=== PATIENT | female | born 1990 | race Caucasian/White ===

== ENCOUNTER 2017-05-19 17:26 | Emergency (ER) | payer SELFPAY, OTHER | END 2017-05-19 19:05 | disposition home or self-care (01) | LOC: M ED 17:26 | DX: J02.8 Acute pharyngitis due to other specified organisms (principal); F17.210 Nicotine dependence, cigarettes, uncomplicated; Z88.8 Allergy status to other drugs, medicaments and biological substances | CPT/HCPCS: 87880 ==

== ENCOUNTER 2020-10-15 10:28 | Inpatient (IN) | payer MEDICAID, OTHER, SELFPAY ==
[~2020-10-15] VITALS: Ht 149.9 cm; Wt 44.5 kg
[~2020-10-15 10:28] MED LIST: BENZ200C70 PO; FLON1SPR
[2020-10-15 11:14] LABS: HEMATOCRIT 49.4 % (36.0-47.0); HEMOGLOBIN 16.3 g/dl (12.0-15.5); MEAN CORPUSCULAR HEMOGLOBIN 29.6 pg (27.0-33.0); MEAN CORPUSCULAR VOLUME 89.8 fl (80.0-96.0); PLATELET COUNT, AUTOMATED 362 10^3/uL (150-450); WHITE BLOOD COUNT 12.2 10^3/uL (4.0-10.0)
[2020-10-15 11:34] LABS: HCG, SERUM QUALITATIVE NEGATIVE (NEGATIVE)
[2020-10-15 11:44] LABS: ACETAMINOPHEN LEVEL < 2.0 UG/ML (10.0-30.0); ALBUMIN 4.3 GM/DL (3.2-5.2); ALT/SGPT 19 U/L (12-78); BILIRUBIN,DIRECT 0.1 MG/DL (0.0-0.2); BILIRUBIN,TOTAL 0.7 MG/DL (0.2-1.0); BLOOD UREA NITROGEN 11 MG/DL (7-18); CARBON DIOXIDE LEVEL 32 MEQ/L (21-32); CHLORIDE LEVEL 104 MEQ/L (98-107); CREATININE FOR GFR 1.12 MG/DL (0.55-1.30); ETHYL ALCOHOL (ETHANOL) < 0.003 % (0.000-0.010); GLOMERULAR FILTRATION RATE > 60.0 (>60); GLUCOSE, FASTING 96 MG/DL (70-100); SALICYLATE LEVEL < 1.7 MG/DL (5.0-30.0); SODIUM LEVEL 139 MEQ/L (136-145); TOTAL PROTEIN 8.2 GM/DL (6.4-8.2)
--- NOTE | 2020-10-15 11:51 | REPVR ---
PROCEDURE INFORMATION: Exam: CT Head Without Contrast Exam date and time: 10/15/2020 11:42 AM Age: 30 years old Clinical indication: Altered mental status/memory loss TECHNIQUE: Imaging protocol: Computed tomography of the head without contrast. Radiation optimization: All CT scans at this facility use at least one of these dose optimization techniques: automated exposure control; mA and/or kV adjustment per patient size (includes targeted exams where dose is matched to clinical indication); or iterative reconstruction. COMPARISON: No relevant prior studies available. FINDINGS: Brain: Normal. No hemorrhage. Unremarkable white matter. No mass effect. Cerebral ventricles: No ventriculomegaly. Paranasal sinuses: There is mild ethmoid and maxillary sinus mucosal thickening. Mastoid air cells: Visualized mastoid air cells are well aerated. Bones/joints: Unremarkable. No acute fracture. Soft tissues: Unremarkable. IMPRESSION: No acute hemorrhage or edema. Electronically signed by: Mirlande Brown On 10/15/2020 11:50:52 AM
[2020-10-15 12:41] LABS: AMPHETAMINES LEVEL URINE POSITIVE (NEGATIVE); BARBITURATES URINE NEGATIVE (NEGATIVE); BENZODIAZEPINES URINE NEGATIVE (NEGATIVE); CANNABINOIDS URINE NEGATIVE (NEGATIVE); COCAINE METABOLITE URINE POSITIVE (NEGATIVE); METHADONE URINE NEGATIVE (NEGATIVE); OPIATES URINE NEGATIVE (NEGATIVE); PHENCYCLIDINE URINE NEGATIVE (NEGATIVE)
[2020-10-15 15:37] LABS: RSV AMPLIFICATION NEGATIVE (NEGATIVE)
[2020-10-15] MEDS ORDERED: MOM 30ML SUSPENSION UDC PO PRN (20:00)
[2020-10-15] MEDS ORDERED: MAALOX 30 ML SUSP *UDC PO PRN (20:00)
[2020-10-15] MEDS ORDERED: OLANZapine ORAL DISINTEGRATING TAB 5MG PO PRN (20:00)
[2020-10-15 20:48] VITALS: BP 123/67
--- NOTE | 2020-10-15 20:52 | ECGEPIP ---
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
[2020-10-15] MEDS ORDERED: traZODone 50 MG TAB PO PRN (22:20)
[2020-10-15] MEDS ORDERED: NICOTINE 21MG/24HR 1 EA TRANSDERMAL TD PRN (23:30)
[2020-10-16] MEDS ORDERED: NICOTINE 21MG/24HR 1 EA TRANSDERMAL TD SCH (09:00)
--- NOTE | 2020-10-16 10:11 | MHHPEPDOC ---
General Date Of Admission: Oct 15, 2020 Legal Status: 9.39 Chief Complaint I was self-medicating with cocaine and amphetamine and I do not plan to stop. ". History of Present Illness HISTORY OF THE PRESENT ILLNESS: Patient is a 30 -year-old , female, who [has a long history of substance abuse primarily amphetamine and cocaine for the past several years. Patient was brought to emergency room by police after her parents called to report concern for her safety. Her parents felt that she was actively using amphetamine and was contemplating suicide by using a gun although the patient does not have a gun and denies making any suicidal threats. 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 She has been attending outpatient addictions of service but never stopped using and does not plan to stop using and does not want to go to any drug inpatient rehabilitation treatment. She denies any hallucination paranoia denies any serious depression denies any suicidal plan or intent and denies any previous suicidal attempt. She has been homeless for the past 4 years has been staying with a friend or living in a car but has no plan to settle down and does not have any plan to stop using. She is moderately elevated and inappropriately smiling at times and having hard time focusing but is not expressing any delusional ideas and denies any hallucination and any suicidal thoughts at all]. Psychiatric Review of Systems Depression (2 or more weeks): feelings of excess/guilt, difficulty concentrating, other (Patient admits to grieving the of her boyfriend) Tamy (4 or more days of): denies Psychosis: denies PTSD: denies Anxiety: situational anxiety Past Psychiatric History Previous Psychiatric Diagnosis: . Denies any previous psychiatric treatment Previous Psychiatric Admissions: . No prior inpatient treatment Suicide Attempts: . Denies any history of suicidal attempt Psychiatric Follow-up: . Attending substance abuse treatment program Psychiatric medications: . Not been on any psychiatric medicine Past Medical History Medical Problems Denies any major medical history Head Injury: No Seizures: No Hospitalizations: No Surgeries: No Family Medical/Psychiatric HX Medical Problems Noncontributory Psychiatric Disorders: No Addiction: No Suicide Attemps/Completions: No (Patient denies any family psychiatric history) Addiction History cocaine, amphetamines, methamphetamines Social History Childhood: . Reports no problems with her childhood Abuse/Trauma:[Denies any history of trauma]. Current Living Situation: Been homeless for 4 years. Education: . High school Employment: . Past work at the [employer] Social Support: . Friend Legal: . Has family court involvement has 2 children ages 6 and 4 living with the parents with a temporary custody Marital: . Never father of her 6-year-old of car accident in 2017 Mental Status Examination General Appearance: appears stated age Build: thin Demeanor: average Eye Contact: average Activity: average, anxious Behavior: cooperative, restless Speech: clear, pressured, normal volume Mood: anxious, other (Slightly elevated and occasional inappropriate smiles) Mood Reports that she is still grieving over the of her child's father Thought Process: logical/linear Thought Content (Delusions): none reported, denies SI, HI, AVH Thought Content (Other): none reported Thought Content (Aggressive): none reported Perception (Hallucinations): none reported Perception (Other): none reported Cognition (Impairment of): none reported Cognition(Intelligence Est.): average Oriented: Awake, Alert, Oriented times three Insight: fair Judgment: Poor Diagnoses 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 She admits to active cocaine and amphetamine use and appears to be slightly elevated under the influence of amphetamine but no gross psychotic symptoms and does not appear to be acutely suicidal. She is denying any need for inpatient rehabilitation treatment but is interested in possible antidepressant treatment. She needs further observation and lethality assessment. Initial Treatment Plan 1. Patient was admitted on a 9.39 status. 2. Complete history was obtained. 3. With patients permission, family will be contacted and database will be expanded. 4. Patients medication regimen will be reviewed and changed accordingly. 5. Patient will be provided with protected environment. 6. Patient will be treated with individual, group, and milieu therapies. 7. Patient will receive supportive psych-education. 8. Discharge planning will commence immediately. 9. Outpatient follow-up treatment will be strongly recommended. 10. The initial treatment plan will focus initially on: * Depression. * Risk for suicide. ESTIMATED LENGTH OF STAY: 3-5 DAYS. TIME SPENT COUNSELING AND COORDINATING INITIAL CARE: 45 minutes. Tobacco Cessation Screen If Patient is a Smoker Is a smoker Tobacco Cessation Tx Ordered?: Yes N/A-No Antipsychotics Vital Signs Vital Signs Date Time Temp Pulse Resp B/P (MAP) Pulse Ox O2 Delivery O2 Flow Rate FiO2 10/15/20 20:48 97.8 82 18 123/67 (85) 98 Room Air Laboratory Data 24H Labs Laboratory Tests 2 10/15/20 10:53: Nucleated Red Blood Cells % (auto) 0.0, Anion Gap 3L, Glomerular Filtration Rate > 60.0, Calcium Level 9.0, Total Bilirubin 0.7, Direct Bilirubin 0.1, Aspartate Amino Transf (AST/SGOT) 19, Alanine Aminotransferase (ALT/SGPT) 19, Alkaline Phosphatase 85, Total Protein 8.2, Albumin 4.3, Albumin/Globulin Ratio 1.1L, Thyroid Stimulating Hormone (TSH) 1.390, Human Chorionic Gonadotropin, Qual NEGATIVE, Salicylates Level < 1.7L, Acetaminophen Level < 2.0L, Ethyl Alcohol Level < 0.003 10/15/20 11:48: Urine Opiates Screen NEGATIVE, Urine Methadone Screen NEGATIVE, Urine Barbiturates Screen NEGATIVE, Urine Phencyclidine Screen NEGATIVE, Urine Amphetamines Screen POSITIVEH, Urine Benzodiazepines Screen NEGATIVE, Urine Cocaine Metabolite Screen POSITIVEH, Urine Cannabinoids Screen NEGATIVE 10/15/20 14:52: Coronavirus (COVID-19)(PCR) NEGATIVE, Influenza Type A (RT-PCR) NEGATIVE, Influenza Type B (RT-PCR) NEGATIVE, Respiratory Syncytial Virus (PCR) NEGATIVE CBC/BMP Laboratory Tests 10/15/20 10:53 Medications No Active Prescriptions or Reported Meds Allergies Coded Allergies: sodium hypochlorite solution (Verified Allergy, Unknown, RASH, 10/15/20) JAMES COLEMAN M.D. Oct 16, 2020 10:11
--- NOTE | 2020-10-16 15:05 | HPEPDOC ---
[facility] Medical History & Physical Date of Admission Oct 15, 2020 Date of Service: Oct 16, 2020 History and Physical Chief complaint: Who presented to the emergency room with suicidal ideation History of present illness: Patient is a 30-year-old female who presented to the emergency room with suicidal ideation. Patient was admitted to inpatient mental health unit under the care of psychiatry. Hospitalist service was consulted for medical screening evaluation. Patient was seen and examined in the exam room with a female cloth mercerizer back tender. Currently patient denies any headache, nausea, vomiting, chest pain, shortness breath, palpitations, abdominal pain, constipation, diarrhea, or urinary discomfort. Denies any changes in her weight or appetite. Patient reports that she may have been bitten by a mosquito or her thigh. Past Medical History: Chronic left shoulder pain since 2012 has follow-up with pain clinic for steroid injections depression 2014 has stopped taking medications Past Surgical History: Tonsillectomy and adenoidectomy Right inguinal hernia repair Allergies: See below Medications: See below Family History: - Patient denies any prior history of her mother or father Social History: - Patient reports that she is a smoker. Reports the use of marijuana and cocaine. Reports alcohol use socially - Denies recent travel or sick contacts - Patient reports that she is currently living at a friends place - Occupation; unemployed Review of Systems: 10 point review of systems complete, all negative otherwise stated in HPI Physical exam: - Vitals: BP [123/67], HR [82], RR [18], Sat [98%RA], Temp [97.8F] - General: Sitting up in chiar, No acute distress, Speaking in full sentences, AAOx3 - HEENT: NC, AT, PERRLA - CVS: RRR, +S1S2 - Lungs: Fair air entry bilaterally, No appreciable wheezing / rales / rhonchi - Abdomen: Soft, Non-distended, Non-tender - Extremities: No lower extremity edema, No calf tenderness - Neuro: No focal motor or sensory deficit - Skin: Multiple areas of decreased pigmentation around legs, face, arms, thighs (reported its been happening for years) Labs: See below Imaging: CT Head 10/15: No acute hemorrhage or edema. EKG: See below Assessment and Plan: Suicidal ideation - History of depression 2014 has stopped taking medications - Patient has been admitted to inpatient mental health unit under the care of psychiatry - Currently being managed by psychiatry Dental caries - Patient will need to follow with a dentist/oral surgeon as an outpatient Multiple skin lesions - Patient reports this has been chronic home for her for the last several years - Will have outpatient follow-up with dermatology Chronic left shoulder pain since 2012 - Follows with pain clinic for steroid injections DVT prophylaxis - Will c/w early ambulation Female cloth mercerizer back tender was present throughout the duration of this history and physical examination Thank you for this consultation. Hospitalist service will now sign off. Please reconsult as needed Vital Signs Vital Signs Date Time Temp Pulse Resp B/P (MAP) Pulse Ox O2 Delivery O2 Flow Rate FiO2 10/15/20 20:48 97.8 82 18 123/67 (85) 98 Room Air Home Medications No Active Prescriptions or Reported Meds Allergies Coded Allergies: sodium hypochlorite solution (Verified Allergy, Unknown, RASH, 10/15/20) MARNIE ORO MD Oct 16, 2020 15:05
[2020-10-16 16:10] LABS: BASO # 0.1 10^3/uL (0.0-0.2); EOS # 0.1 10^3/uL (0.0-0.5); EOS % 1.4 % (0.0-3.0); HEMATOCRIT 47.3 % (36.0-47.0); HEMOGLOBIN 15.4 g/dl (12.0-15.5); LYMPH # 3.2 10^3/uL (1.5-5.0); MEAN CORPUSCULAR HEMOGLOBIN 29.5 pg (27.0-33.0); MEAN CORPUSCULAR HGB CONC 32.6 g/dl (32.0-36.5); MEAN CORPUSCULAR VOLUME 90.6 fl (80.0-96.0); MONO # 0.7 10^3/uL (0.0-0.8); MONO % 6.8 % (2.0-8.0); NEUTROPHILS # 6.1 10^3/uL (1.5-8.5); NEUTROPHILS % 59.3 % (36.0-66.0); PLATELET COUNT, AUTOMATED 330 10^3/uL (150-450); RED BLOOD COUNT 5.22 10^6/uL (4.00-5.40); WHITE BLOOD COUNT 10.3 10^3/uL (4.0-10.0)
[2020-10-16 18:40] VITALS: BP 120/77
[2020-10-16] MEDS: QUEtiapine FUMARATE 100 MG TAB PO SCH (20:51)
[2020-10-16] MEDS: diphenhydrAMINE CREAM 30GM TOP PRN (20:52)
[2020-10-17 05:52] VITALS: BP 124/68
--- NOTE | 2020-10-17 10:23 | MHIPNPDOC ---
[facility] Progress Note Progress Note DATE OF SERVICE: 10/17/20 The patient took her Seroquel last night and slept through the night and reports feeling a little better. She is in good control,is eating and denies any problem but appears very superficial and still somewhat elevated. She easily admits that she has been using cocaine and amphetamine and has no intention to stop using because those are her medications for her mental health. She is again smiling somewhat inappropriately and reports feeling good and denies any serious depression or suicidal thoughts. She is hoping to be able to go to her boyfriend father's house where her baby is staying. She is admitting to making suicidal statement but denies any clear plan or intent and does not want to go to any inpatient drug treatment. She is showing absolutely no insight and has no safe plan at this time so we will continue with her Seroquel and continue with the supportive therapy and education and develop a safe discharge plan. . HISTORY:. VITAL SIGNS: See below. NEW TEST RESULTS:. CURRENT MEDICATIONS: See below. MENTAL STATUS EXAMINATION: Patient is a 30-year old female, who is in good control. Speech: Is rational relevant. Language skills are fair. Thought processes including: Relevant response but not spontaneous. Thought content: Denies any hallucination or paranoia. Abstract reasoning, and computation: Poor. Description of associations: Coherent. Description of abnormal or psychotic thoughts: Denies any psychotic symptoms and denies any suicidal plan. Judgment: Poor. Insight: Very poor. Orientation: Appears oriented. Recent and remote memory: No gross impairment. Attention span and concentration: Poor. Language:. Fund of knowledge:. Mood: Claims she is feeling good. Affect: Animated but somewhat inappropriate. DIAGNOSES: 1.. Depressive disorder NOS 2.. Cocaine and amphetamine use disorder 3.. ASSESSMENT: Maintaining control and denies any active suicidal thoughts MANAGEMENT PLAN: Continue with the Seroquel at bedtime and supportive therapy and education. TIME SPENT: 20 minutes. Vital Signs Vital Signs Date Time Temp Pulse Resp B/P (MAP) Pulse Ox O2 Delivery O2 Flow Rate FiO2 10/17/20 05:52 97.2 98 16 124/68 (86) 97 Room Air Laboratory Data 24H Labs Laboratory Tests 2 10/16/20 15:51: Immature Granulocyte % (Auto) 0.5, Neutrophils (%) (Auto) 59.3, Lymphocytes (%) (Auto) 31.0, Monocytes (%) (Auto) 6.8, Eosinophils (%) (Auto) 1.4, Basophils (%) (Auto) 1.0, Neutrophils # (Auto) 6.1, Lymphocytes # (Auto) 3.2, Monocytes # (Auto) 0.7, Eosinophils # (Auto) 0.1, Basophils # (Auto) 0.1, Nucleated Red Blood Cells % (auto) 0.0, Procalcitonin <0.05 CBC/BMP Laboratory Tests 10/16/20 15:51 Current Medications Current Medications Medications (Trade) Dose Ordered Sig/Payal Route PRN Reason Start Time Stop Time Status Last Admin Dose Admin Acetaminophen (Tylenol Tab) 650 mg Q6HP PRN PO HEADACHE or MILD DISCOMFORT 10/15/20 20:00 Al Hydrox/Mg Hydrox/Simethicone (Mylanta) 30 ml Q4HP PRN PO HEARTBURN/INDIGESTION 10/15/20 20:00 Diphenhydramine HCl (Benadryl Cream) apply to affected areas... Q6HP PRN TOP ITCHING 10/16/20 15:15 10/16/20 20:52 Home Med (Med Rec Complete!) ASDIRECTED XX 10/15/20 14:10 10/15/20 14:13 DC Magnesium Hydroxide (Milk Of Magnesia) 30 ml DAILYPRN PRN PO CONSTIPATION 10/15/20 20:00 Nicotine (Nicoderm Cq 21mg) 1 patch DAILY TD 10/16/20 09:00 10/15/20 23:31 DC Nicotine (Nicoderm Cq 21mg) 1 patch DAILY PRN TD NICOTINE WITHDRAWAL 10/15/20 23:30 10/15/20 23:37 Olanzapine (ZyPREXA ZYDIS) 5 mg Q4HP PRN PO AGITATION 10/15/20 20:00 Quetiapine Fumarate (SEROquel) 100 mg QHS PO 10/16/20 21:00 10/16/20 20:51 Trazodone HCl (Desyrel) 50 mg QHSP PRN PO INSOMNIA 10/15/20 22:20 Allergies Coded Allergies: sodium hypochlorite solution (Verified Allergy, Unknown, RASH, 10/15/20) JAMES COLEMAN M.D. Oct 17, 2020 10:23
[2020-10-17 17:19] VITALS: BP 118/79
[2020-10-17] MEDS: QUEtiapine FUMARATE 100 MG TAB PO SCH (22:47)
[2020-10-17] MEDS: diphenhydrAMINE CREAM 30GM TOP PRN (22:49)
[2020-10-17] MEDS: ACETAMINOPHEN TAB 650MG DOSE (2X325MG) PO PRN (22:50)
[2020-10-18 06:57] VITALS: BP 92/64
[2020-10-18] MEDS: ACETAMINOPHEN TAB 650MG DOSE (2X325MG) PO PRN (12:50)
[2020-10-18 16:06] VITALS: BP 109/67
[2020-10-18] MEDS ORDERED: IBUPROFEN 600MG TAB PO PRN (17:10)
[2020-10-19] MEDS: ACETAMINOPHEN TAB 650MG DOSE (2X325MG) PO PRN (00:19)
[2020-10-19] MEDS: BENZOCAINE 10% 9GM TUBE (ANBESOL) TOP PRN ×2 (00:20→20:56)
[2020-10-19 05:42] VITALS: BP 139/72
[2020-10-19] MEDS: diphenhydrAMINE CREAM 30GM TOP PRN (20:56)
--- NOTE | 2020-10-19 22:09 | MHIPN ---
[facility] PROGRESS NOTE DATE: 10/18/2020 The patient is seen via telepsychiatry due to the current Coronavirus crisis. Patient states, "I am sleeping," and her eyes were closed throughout the whole time she was talking to me. She says she slept good also, but she thinks that it is the medication that is making her feel so groggy and it appears to be the Seroquel. She denies being depressed or being suicidal or homicidal. MENTAL STATUS EXAMINATION: She is alert and oriented times three, as I said there was no eye contact, she kept them closed. There was no formal thought disorder noted. She said her mood is good. Affect is constricted but appropriate to mood. She is not psychotic, suicidal, or homicidal. Concentration is fair. Memory is intact. Insight and judgment is poor. DIAGNOSES: Unspecified depressive disorder. Stimulant use disorder (cocaine and amphetamine). TREATMENT PLAN: We will continue to monitor the patient for continued resolution of her suicidal thoughts and stabilization of her mood, and we will plan to discharge the patient with appropriate followup once stable, and we will discontinue the Seroquel.
[2020-10-20 06:01] VITALS: BP 119/61
--- NOTE | 2020-10-20 09:18 | MHDSPDOC ---
[facility] Discharge Summary Discharge Summary DATE OF ADMISSION: Oct 15, 2020 at 19:56 DATE OF DISCHARGE: October 20, 2020 DISCHARGE DIAGNOSES: 1.. Depressive disorder NOS 2.. Cocaine and amphetamine use disorder REASON FOR ADMISSION: 30-year-old female with a long history of polysubstance abuse but no previous inpatient psychiatric treatment. She was brought to the emergency room by police after her parents called due to concern for her safety. She has been actively using and has been homeless and apparently made a suicidal statement to her parents. On admission patient denies any lethality is sues and claims that her parents were exaggerating and lying about her situation and denies any suicidal thoughts plan or intent. CONSULTANTS INVOLVED: TREATMENT AND PROGRESS ON THE UNIT : Patient initially appeared to be under the influence of amphetamine and showed somewhat elevated mood irritability and moderate psychomotor agitation. She was given Seroquel 100 mg at bedtime and slept well showed significant reduction in her agitation but after the first 2 days she complains of feeling too sedated and Seroquel was discontinued. She was seen for supportive therapy and education and the patient admits that she has a problem with the use interrupts but does not want to stop using and does not want alcohol to any inpatient rehab treatment. She remained in good control and did not show any self mutilating or suicidal behavior and did not show any acute psychotic symptoms and did not appear clinically depressed.. HOSPITAL COURSE: She remained in good control and continues to deny any need for antidepressant medicine or inpatient drug rehabilitation treatment and does not want to stop using amphetamine or cocaine. She did not show any dangerous behavior and strongly denied any suicidal plan or intent. DISCHARGE ASSESSMENT: Behavior is stable and is not suicidal at this time. MENTAL STATUS EXAMINATION ON DISCHARGE: Patient is a 30-year old female, who is in no acute distress. Speech is rational and coherent. Language skills are fair. Thought processes including: Relevant. Thought content: Does not want to stop using drugs. Abstract reasoning, and computation: Fair. Description of associations: Organized. Description of abnormal or psychotic thoughts: No gross psychotic symptoms and denies any suicidal thoughts. Judgment: Poor. Insight: Fair. Orientation to oriented. Recent and remote memory: Unimpaired. Attention span and concentration: Fair. Language:. Fund of knowledge:. Mood: Reports feeling good and does not feel suicidal. Affect: Animated with a good range. MEDICATIONS ON DISCHARGE: -For. No psychotropic medication was given -For. -For. PLAN/FOLLOWUP ARRANGEMENTS: Arranged by the telecommunications network planner. The amount of time spent in the coordination of care for this patient was approximately 35 minutes. ETOH/Disorder Med Rx ETOH/DRUG DISORDER RX: N/A Vital Signs/I&Os Vital Signs Date Time Temp Pulse Resp B/P (MAP) Pulse Ox O2 Delivery O2 Flow Rate FiO2 10/20/20 06:01 98.6 86 18 119/61 (80) 98 Room Air Medications No Active Prescriptions or Reported Meds Allergies Coded Allergies: sodium hypochlorite solution (Verified Allergy, Unknown, RASH, 10/15/20) JAMES COLEMAN M.D. Oct 20, 2020 09:18
--- NOTE | 2020-10-20 12:41 | MHIPN ---
ON LICENSE OF [facility] PSYCHIATRIC PROGRESS NOTE DATE OF SERVICE: 10/19/2020 HISTORY OF PRESENT ILLNESS: The patient is seen via TelePsychiatry due to the current Coronavirus crisis. The patient states "I'm doing all right I just have bad teeth." She says that she is "dying to get out of here." She says that she is supposed to be vacationing at the [facility] and that is where she plans to go when she leaves. She tells me that the reason she is doing cocaine is because of her bad teeth, but she is vague as to whether she has tried to set any appointments up for that. MENTAL STATUS EXAM: This patient is alert and oriented times 3. Eye contact is good. There is no formal thought disorder. She is verbally spontaneous. She says that her mood is "good." Affect is a bit irritable, but appropriate. She is not psychotic, suicidal or homicidal. Concentration is fair. Memory intact. Insight and judgment is poor. DIAGNOSES: 1. Unspecified depressive disorder. 2. Stimulant use disorder (cocaine and amphetamines). TREATMENT PLAN: We will continue to monitor the patient for continued elevation and stabilization of her mood and continued resolution of suicidal ideation.
== END 2020-10-20 11:05 | disposition home or self-care (01) | DRG 755 ==
LOC: M ED 10:28 → M ED INP 19:56 → M PSY 20:29
PROVIDERS: ADMIT Psychiatry & Neurology Psychiatry; ATTEND Psychiatry & Neurology Psychiatry
DX: F43.25 Adjustment disorder with mixed disturbance of emotions and conduct (principal); F14.10 Cocaine abuse, uncomplicated; F17.210 Nicotine dependence, cigarettes, uncomplicated; M25.512 Pain in left shoulder; K02.9 Dental caries, unspecified; L98.9 Disorder of the skin and subcutaneous tissue, unspecified; F15.10 Other stimulant abuse, uncomplicated; Z59.0 Homelessness; Z20.822 Contact with and (suspected) exposure to COVID-19; Z91.048 Other nonmedicinal substance allergy status

== ENCOUNTER 2021-11-26 18:59 | Emergency (ER) | payer MEDICAID ==
[~2021-11-26] VITALS: Ht 154.9 cm; Wt 45.0 kg
[2021-11-26] MEDS ORDERED: OLANZapine INTRAMUSCULAR 10MG VIAL IM ONE (19:10)
[2021-11-26 20:33] LABS: HEMATOCRIT 44.4 % (36.0-47.0); MEAN CORPUSCULAR HEMOGLOBIN 30.7 pg (27.0-33.0); MEAN CORPUSCULAR HGB CONC 33.8 g/dl (32.0-36.5); PLATELET COUNT, AUTOMATED 338 10^3/uL (150-450); RED BLOOD COUNT 4.88 10^6/uL (4.00-5.40); WHITE BLOOD COUNT 11.7 10^3/uL (4.0-10.0)
[2021-11-26 21:01] LABS: HCG, SERUM QUALITATIVE NEGATIVE (NEGATIVE)
[2021-11-26 21:08] LABS: RSV AMPLIFICATION NEGATIVE (NEGATIVE)
[2021-11-26 21:22] LABS: ACETAMINOPHEN LEVEL < 2.0 UG/ML (10.0-30.0); ALBUMIN 4.2 GM/DL (3.2-5.2); ALT/SGPT 14 U/L (12-78); BILIRUBIN,DIRECT < 0.1 MG/DL (0.0-0.2); BILIRUBIN,TOTAL 0.3 MG/DL (0.2-1.0); BLOOD UREA NITROGEN 8 MG/DL (7-18); CALCIUM LEVEL 9.7 MG/DL (8.5-10.1); CARBON DIOXIDE LEVEL 28 MEQ/L (21-32); CHLORIDE LEVEL 108 MEQ/L (98-107); CREATININE FOR GFR 0.99 MG/DL (0.55-1.30); ETHYL ALCOHOL (ETHANOL) 0.008 % (0.000-0.010); GLOMERULAR FILTRATION RATE > 60.0 (>60); GLUCOSE, FASTING 104 MG/DL (70-100); POTASSIUM SERUM 4.2 MEQ/L (3.5-5.1); SALICYLATE LEVEL 2.2 MG/DL (5.0-30.0); SODIUM LEVEL 141 MEQ/L (136-145); TOTAL PROTEIN 7.7 GM/DL (6.4-8.2)
[2021-11-26 21:31] LABS: AMPHETAMINES LEVEL URINE POSITIVE (NEGATIVE); BARBITURATES URINE NEGATIVE (NEGATIVE); BENZODIAZEPINES URINE NEGATIVE (NEGATIVE); CANNABINOIDS URINE POSITIVE (NEGATIVE); COCAINE METABOLITE URINE NEGATIVE (NEGATIVE); METHADONE URINE NEGATIVE (NEGATIVE); OPIATES URINE NEGATIVE (NEGATIVE); PHENCYCLIDINE URINE NEGATIVE (NEGATIVE)
[2021-11-27] MEDS ORDERED: HOME MED LIST COMPLETE! XX SCH (16:50)
[2021-11-27 18:52] VITALS: BP 105/63
== END 2021-11-27 18:53 | disposition home or self-care (01) ==
LOC: M ED 18:59
DX: F43.8 Other reactions to severe stress (principal); R45.1 Restlessness and agitation; R45.851 Suicidal ideations; F17.200 Nicotine dependence, unspecified, uncomplicated

== ENCOUNTER 2022-03-13 21:38 | Inpatient (IN) | payer MEDICAID ==
[~2022-03-13] VITALS: Ht 142.2 cm; Wt 41.1 kg
[2022-03-13 22:51] LABS: HEMATOCRIT 46.2 % (36.0-47.0); HEMOGLOBIN 15.6 g/dl (12.0-15.5); MEAN CORPUSCULAR HEMOGLOBIN 30.3 pg (27.0-33.0); MEAN CORPUSCULAR HGB CONC 33.8 g/dl (32.0-36.5); MEAN CORPUSCULAR VOLUME 89.7 fl (80.0-96.0); PLATELET COUNT, AUTOMATED 322 10^3/uL (150-450); RED BLOOD COUNT 5.15 10^6/uL (4.00-5.40); WHITE BLOOD COUNT 11.2 10^3/uL (4.0-10.0)
[2022-03-13 23:13] LABS: METHADONE URINE NEGATIVE (NEGATIVE); OPIATES URINE NEGATIVE (NEGATIVE); PHENCYCLIDINE URINE NEGATIVE (NEGATIVE)
[2022-03-13 23:14] LABS: BARBITURATES URINE NEGATIVE (NEGATIVE); BENZODIAZEPINES URINE NEGATIVE (NEGATIVE)
[2022-03-13 23:21] LABS: RSV AMPLIFICATION NEGATIVE (NEGATIVE)
[2022-03-13 23:25] LABS: AMPHETAMINES LEVEL URINE POSITIVE (NEGATIVE); CANNABINOIDS URINE POSITIVE (NEGATIVE); COCAINE METABOLITE URINE POSITIVE (NEGATIVE)
[2022-03-14 00:08] LABS: ETHYL ALCOHOL (ETHANOL) 0.003 % (0.000-0.010)
[2022-03-14 00:09] LABS: BILIRUBIN,DIRECT 0.1 MG/DL (<0.4)
[2022-03-14 00:10] LABS: ACETAMINOPHEN LEVEL < 2.0 UG/ML (10.0-20.0); SALICYLATE LEVEL < 3.0 MG/DL (<30)
[2022-03-14 00:12] LABS: THYROID STIMULATING HORMONE 1.461 uIU/ML (0.55-4.78)
[2022-03-14 00:21] LABS: ALBUMIN 4.5 G/DL (3.2-5.2); ALKALINE PHOSPHATASE 85 U/L (46-116); ALT/SGPT 13 U/L (7.0-40); AST/SGOT 24 U/L (<34); BILIRUBIN,TOTAL 0.5 MG/DL (0.3-1.2); BLOOD UREA NITROGEN 17 MG/DL (9-23); CARBON DIOXIDE LEVEL 20 MMOL/L (20-31); CHLORIDE LEVEL 104 MMOL/L (98-107); CREATININE FOR GFR 0.77 MG/DL (0.55-1.30); GLOMERULAR FILTRATION RATE > 60.0 (>60); GLUCOSE, FASTING 112 MG/DL (60-100); HCG, SERUM QUALITATIVE NEGATIVE (NEGATIVE); POTASSIUM SERUM 4.4 MMOL/L (3.5-5.1); SODIUM LEVEL 139 MMOL/L (136-145); TOTAL PROTEIN 7.8 G/DL (5.7-8.2)
[2022-03-14] MEDS: NICOTINE 21MG/24HR 1 EA TRANSDERMAL TD SCH (09:00)
[2022-03-14] MEDS ORDERED: OLANZapine ORAL DISINTEGRATING TAB 5MG PO PRN (10:50)
[2022-03-14] MEDS ORDERED: MOM 30ML SUSPENSION UDC PO PRN (10:50)
[2022-03-14] MEDS ORDERED: traZODone 50 MG TAB PO PRN (10:50)
[2022-03-14] MEDS ORDERED: MAALOX 30 ML SUSP *UDC PO PRN (10:50)
[2022-03-14] MEDS ORDERED: ACETAMINOPHEN TAB 650MG DOSE (2X325MG) PO PRN (10:50)
[2022-03-14] MEDS ORDERED: OLANZapine ORAL DISINTEGRATING TAB 5MG PO ONE (10:50)
[2022-03-14] MEDS ORDERED: HOME MED LIST COMPLETE! XX SCH (11:00)
[2022-03-14 12:30] VITALS: BP 121/71
[2022-03-14 16:31] VITALS: BP 110/70
[2022-03-14] MEDS: OLANZapine 5 MG TAB PO SCH (20:48)
[2022-03-14] MEDS: CHLORHEXIDINE GLUCONATE 0.12 % 15ML UDC (PERIDEX ORAL RINSE) SSP SCH (21:45)
[2022-03-15] MEDS: LIDOCAINE VISCOUS 2% SOLN 15ML UDC SSP PRN (00:03)
[2022-03-15 06:47] VITALS: BP 106/56
[2022-03-15] MEDS: OLANZapine 5 MG TAB PO SCH ×2 (08:00→21:00)
[2022-03-15] MEDS: NICOTINE 21MG/24HR 1 EA TRANSDERMAL TD SCH (08:00)
[2022-03-15] MEDS: CHLORHEXIDINE GLUCONATE 0.12 % 15ML UDC (PERIDEX ORAL RINSE) SSP SCH ×3 (09:02→22:32)
[2022-03-15] MEDS: NICOTINE POLACRILEX 2 MG GUM PO PRN (16:39)
[2022-03-15 18:59] VITALS: BP 129/60
[2022-03-16] MEDS: NICOTINE POLACRILEX 2 MG GUM PO PRN ×2 (08:13→12:18)
[2022-03-16] MEDS: OLANZapine 5 MG TAB PO SCH ×2 (08:14→21:00)
[2022-03-16] MEDS: CHLORHEXIDINE GLUCONATE 0.12 % 15ML UDC (PERIDEX ORAL RINSE) SSP SCH ×2 (08:14→21:00)
[2022-03-16] MEDS: LIDOCAINE VISCOUS 2% SOLN 15ML UDC SSP PRN (10:24)
[2022-03-16 20:10] VITALS: BP 111/61
[2022-03-17 06:37] VITALS: BP 115/68
[2022-03-17] MEDS: NICOTINE POLACRILEX 2 MG GUM PO PRN (08:12)
[2022-03-17] MEDS: CHLORHEXIDINE GLUCONATE 0.12 % 15ML UDC (PERIDEX ORAL RINSE) SSP SCH (08:12)
[2022-03-17] MEDS: OLANZapine 5 MG TAB PO SCH (08:12)
[2022-03-17] MEDS: LIDOCAINE VISCOUS 2% SOLN 15ML UDC SSP PRN (09:06)
[2022-03-17] MEDS ORDERED: PERI12LIQ SSP (09:50)
== END 2022-03-17 13:43 | disposition home or self-care (01) | DRG 751 ==
LOC: M ED 21:38 → M ED INP 03-14 10:48 → M PSY 03-14 12:32
PROVIDERS: ADMIT Psychiatry & Neurology Psychiatry; ATTEND Psychiatry & Neurology Psychiatry
DX: F29 Unspecified psychosis not due to a substance or known physiological condition (principal); R45.851 Suicidal ideations; F17.210 Nicotine dependence, cigarettes, uncomplicated; F11.90 Opioid use, unspecified, uncomplicated; F14.90 Cocaine use, unspecified, uncomplicated

== ENCOUNTER 2022-06-30 19:33 | Emergency (ER) | payer MEDICAID, OTHER ==
[~2022-06-30] VITALS: Ht 149.9 cm; Wt 42.8 kg
[~2022-06-30 19:33] MED LIST changes: -CEPH500C
[2022-06-30 19:36] VITALS: BP 136/63
[2022-06-30] MEDS ORDERED: CEPH500C (19:48)
[2022-06-30 21:02] LABS: BASO # 0.1 10^3/uL (0.0-0.2); BASO % 0.9 % (0.0-1.0); EOS # 0.2 10^3/uL (0.0-0.5); EOS % 1.8 % (0.0-3.0); HEMATOCRIT 41.9 % (36.0-47.0); LYMPH # 3.2 10^3/uL (1.5-5.0); LYMPH % 24.3 % (24.0-44.0); MEAN CORPUSCULAR HEMOGLOBIN 30.6 pg (27.0-33.0); MEAN CORPUSCULAR HGB CONC 33.4 g/dl (32.0-36.5); MEAN CORPUSCULAR VOLUME 91.5 fl (80.0-96.0); MONO # 1.5 10^3/uL (0.0-0.8); MONO % 10.9 % (2.0-8.0); NEUTROPHILS # 8.2 10^3/uL (1.5-8.5); NEUTROPHILS % 61.7 % (36.0-66.0); PLATELET COUNT, AUTOMATED 377 10^3/uL (150-450); RED BLOOD COUNT 4.58 10^6/uL (4.00-5.40); WHITE BLOOD COUNT 13.3 10^3/uL (4.0-10.0)
[2022-06-30 21:19] LABS: ERYTHROCYTE SEDIMENTATION RATE 20 mm/hr (0-20)
[2022-06-30 21:29] LABS: BLOOD UREA NITROGEN 14 MG/DL (9-23); CALCIUM LEVEL 8.8 MG/DL (8.5-10.1); CARBON DIOXIDE LEVEL 24 MMOL/L (20-31); CHLORIDE LEVEL 108 MMOL/L (98-107); CREATININE FOR GFR 0.74 MG/DL (0.55-1.30); GLOMERULAR FILTRATION RATE > 60.0 (>60); GLUCOSE, FASTING 106 MG/DL (60-100); POTASSIUM SERUM 4.5 MMOL/L (3.5-5.1); SODIUM LEVEL 140 MMOL/L (136-145)
[2022-07-01] MEDS ORDERED: DALBAVANCIN 1,500 MG in D5W 250 ML IV ONE ×2
== END 2022-07-01 01:55 | disposition home or self-care (01) ==
LOC: EEVIPCON 19:33 → M ED 19:33
DX: L03.011 Cellulitis of right finger (principal)
CPT/HCPCS: 73140; 80048; 84702; 85025; 85652; 86140; 87070; 87077; 87186; 87205; 96365; 96366; 99283; J0875

== ENCOUNTER → 2022-06-30 | Outpatient (CLI) | payer MEDICAID ==
[~2022-06-30] MED LIST changes: +CEPH500C; +PERI12LIQ SSP
== END ==
LOC: M RAD 16:55
PROVIDERS: ATTEND Physician Assistant Medical
DX: Z53.9 Procedure and treatment not carried out, unspecified reason (principal)

== ENCOUNTER 2023-09-05 11:35 | Emergency (ER) | payer OTHER, SELFPAY ==
[~2023-09-05] VITALS: Ht 149.9 cm; Wt 45.5 kg
[~2023-09-05 11:35] MED LIST changes: +CEPH500C
[2023-09-05 11:54] VITALS: BP 112/75; TEMP 98.7; O2SAT 99
== END 2023-09-05 15:15 | disposition left against medical advice (07) ==
LOC: M ED 11:35
DX: Z53.21 Procedure and treatment not carried out due to patient leaving prior to being seen by health care provider (principal)

== ENCOUNTER 2024-01-07 16:43 | Emergency (ER) | payer SELFPAY ==
[~2024-01-07] VITALS: Ht 149.9 cm; Wt 43.3 kg
[2024-01-07 17:48] LABS: BASO # 0.1 10^3/uL (0.0-0.2); BASO % 0.5 % (0.0-1.0); EOS # 0.2 10^3/uL (0.0-0.5); EOS % 1.3 % (0.0-3.0); HEMATOCRIT 41.6 % (36.0-47.0); LYMPH # 2.7 10^3/uL (1.5-5.0); LYMPH % 18.7 % (24.0-44.0); MEAN CORPUSCULAR HEMOGLOBIN 30.2 pg (27.0-33.0); MEAN CORPUSCULAR HGB CONC 33.7 g/dl (32.0-36.5); MEAN CORPUSCULAR VOLUME 89.8 fl (80.0-96.0); MONO # 1.5 10^3/uL (0.0-0.8); MONO % 9.9 % (2.0-8.0); NEUTROPHILS # 10.1 10^3/uL (1.5-8.5); NEUTROPHILS % 69.1 % (36.0-66.0); PLATELET COUNT, AUTOMATED 305 10^3/uL (150-450); RED BLOOD COUNT 4.63 10^6/uL (4.00-5.40); WHITE BLOOD COUNT 14.6 10^3/uL (4.0-10.0)
[2024-01-07 18:20] LABS: ALBUMIN 3.3 G/DL (3.2-5.2); ALKALINE PHOSPHATASE 110 U/L (46-116); ALT/SGPT 73 U/L (7.0-40); AST/SGOT 41 U/L (<34); BILIRUBIN,DIRECT 0.2 MG/DL (<0.4); BILIRUBIN,TOTAL 0.5 MG/DL (0.3-1.2); BLOOD UREA NITROGEN 11 MG/DL (9-23); CALCIUM LEVEL 8.3 MG/DL (8.5-10.1); CARBON DIOXIDE LEVEL 25 MMOL/L (20-31); CHLORIDE LEVEL 105 MMOL/L (98-107); CK-MB VALUE MASS < 1.0 NG/ML (<3.6); CREATININE FOR GFR 0.66 MG/DL (0.55-1.30); GLOMERULAR FILTRATION RATE > 60.0 (>60); GLUCOSE, FASTING 127 MG/DL (60-100); POTASSIUM SERUM 3.7 MMOL/L (3.5-5.1); SODIUM LEVEL 136 MMOL/L (136-145); TOTAL PROTEIN 6.9 G/DL (5.7-8.2)
[2024-01-07 18:23] LABS: HCG, SERUM QUALITATIVE NEGATIVE (NEGATIVE)
[2024-01-07 18:31] LABS: CPK CREATINE PHOSPHOKINASE 78 U/L (34-145); MB/CK RELATIVE INDEX 1.28 (< OR =4)
[2024-01-07] MEDS ORDERED: DOXY100C82 PO (20:55)
[2024-01-07] MEDS: DOXYCYCLINE HYCLATE 100MG TABLET PO ONE (21:02)
[2024-01-07 21:26] VITALS: BP 127/82; TEMP 98.6; O2SAT 99
== END 2024-01-07 22:03 | disposition home or self-care (01) ==
LOC: EDBD 16:43 → M ED 16:43
DX: J18.1 Lobar pneumonia, unspecified organism (principal); I45.10 Unspecified right bundle-branch block; F17.210 Nicotine dependence, cigarettes, uncomplicated; F15.10 Other stimulant abuse, uncomplicated; Z88.8 Allergy status to other drugs, medicaments and biological substances; Z79.2 Long term (current) use of antibiotics

== ENCOUNTER 2024-12-18 12:32 | Emergency (ER) | payer MEDICAID, OTHER ==
[~2024-12-18 12:32] MED LIST changes: +DOXY-442 PO
[2024-12-18] MEDS: FAMOTIDINE 20 MG TAB PO ONE (13:26)
[2024-12-18] MEDS: predniSONE 20 MG TAB PO ONE (13:26)
[2024-12-18] MEDS ORDERED: BENA25CA4 PO (13:35)
[2024-12-18] MEDS ORDERED: PRED20TA PO (13:35)
[2024-12-18 15:00] VITALS: BP 106/58; TEMP 98.9; O2SAT 97
== END 2024-12-18 15:23 | disposition home or self-care (01) ==
LOC: EDBD 12:32 → M ED 12:32
DX: T63.441A Toxic effect of venom of bees, accidental (unintentional), initial encounter (principal); Z88.8 Allergy status to other drugs, medicaments and biological substances; Z79.2 Long term (current) use of antibiotics; Z79.52 Long term (current) use of systemic steroids; Z79.899 Other long term (current) drug therapy
CPT/HCPCS: 99284; J7512